=== PATIENT | male | born 1940 | race Caucasian/White ===

== ENCOUNTER 2017-04-30 13:58 | Inpatient (IN) ==
[2017-05-01] MEDS ORDERED: Budesonide/Formoterol 160/4.5 MDI IH PRN (15:33)
[2017-05-01] MEDS: Primidone 50 MG TABLET PO SCH (21:58)
[2017-05-01] MEDS: clonazePAM 1 MG TABLET PO SCH (21:59)
[2017-05-02] MEDS: *HR* Enoxaparin 40 MG/0.4 ML SYRINGE SQ SCH (05:27)
[2017-05-02 05:58] LABS: BUN/Creatinine Ratio 18 (6-26); Blood Urea Nitrogen 22 mg/dL (8-26); Calcium 8.9 mg/dL (8.6-10.8); Carbon Dioxide 24 mEq/L (19-29); Chloride 108 mEq/L (98-109); Glucose 121 mg/dL (70-99); Osmolality,Calculated 295 (280-300); Potassium 3.8 mEq/L (3.5-4.5); Sodium 140 mEq/L (136-145); eGFR For African Americans > 60 (> 60); eGFR For Non-African Americans 59 (> 60)
[2017-05-02 05:59] LABS: Basophils # 0.1 K/mcL (0.0-0.2); Basophils % 1.2 %; Eosinophils # 0.6 K/mcL (0.0-0.6); Eosinophils % 10.8 %; Hematocrit 40.1 % (37.5-50.1); Hemoglobin 13.8 g/dL (12.9-16.9); Immature Granulocytes % 0.3 % (0-4); Lymphocytes # 1.5 K/mcL (0.6-4.6); Lymphocytes % 25.3 %; Mean Corpuscular HGB Conc 34.4 g/dL (31.6-35.5); Mean Corpuscular Hemoglobin 31.9 pg (28.0-33.3); Mean Corpuscular Volume 92.6 fL (83.0-100.0); Mean Platelet Volume 9.5 fL (9.4-12.4); Monocytes # 0.8 K/mcL (0.0-1.3); Monocytes % 12.8 %; Neutrophils # 2.9 K/mcL (1.6-8.9); Platelet Count 150 K/mcL (140-400); Red Blood Count 4.33 M/mcL (4.19-5.50); Red Cell Distribution Width 12.8 % (11.5-14.5); Segmented Neutrophils % 49.6 %
[2017-05-02 06:04] LABS: Prothrombin Time 10.9 Seconds (9.4-12.1)
[2017-05-02 06:07] LABS: Activated Partial Thrombo Time 30.2 Seconds (26.0-36.0)
[2017-05-02] MEDS: Aspirin Enteric Coated 81 MG Tablet PO SCH (08:20)
[2017-05-02] MEDS: hydroCHLOROthiazide 25 MG TABLET PO SCH (08:20)
[2017-05-02] MEDS: clonazePAM 1 MG TABLET PO SCH ×2 (08:20→21:13)
[2017-05-02] MEDS: Valsartan 160 MG TABLET PO SCH (08:20)
[2017-05-02] MEDS: *HR* Pioglitazone 15 MG TABLET PO SCH (08:20)
--- NOTE | 2017-05-02 10:08 | Internal Med History&Physical ---
<Fam Carlisle S - Last Filed: 05/02/17 14:06> Date of Encounter: 05/02/17 Internal Medicine - H&P: HPI History of present illness: Mr. Floyd is a 76 year old male Internal Medicine - H&P: Meds Albuterol Sulfate [Albuterol Inhaler] 2 puff IH Q4HR PRN 04/28/17 [History] Aspirin [Lo-Dose Aspirin EC] 81 mg PO DAILY 04/28/17 [History] Clopidogrel [Plavix] 75 mg PO DAILY 04/28/17 [History] Fluticasone/Salmeterol [Advair 100-50 Diskus] 1 each IH BID PRN 04/28/17 [ History] Pioglitazone [Actos] 15 mg PO 0800 04/28/17 [History] Primidone [Mysoline] 50 mg PO HS 04/28/17 [History] Valsartan [Diovan] 160 mg PO DAILY 04/28/17 [History] hydroCHLOROthiazide [Hydrochlorothiazide] 12.5 mg PO DAILY 04/28/17 [History] clonazePAM [Klonopin] 1 mg PO BID 04/29/17 [History] Atorvastatin [Lipitor] 40 mg PO HS tablet 05/01/17 [Rx] 3 Allergy/AdvReac Type Severity Reaction Status Date / Time codeine AdvReac Dizziness Verified 11/01/16 08:36 All Systems PM: A 10-system review of systems was performed and is negative for pertinent findings except as documented above in the HPI. - Constitutional Vitals: Temp Pulse Resp BP Pulse Ox 98.6 F 70 16 142/72 95 05/02/17 10:55 05/02/17 10:55 05/02/17 10:55 05/02/17 10:55 05/02/17 10:55 Internal Med - H&P Results - Labs CBC & Chem 7: 05/02/17 05:20 05/02/17 05:20 Labs: Short CBC 05/02/17 Range/Units 05:20 WBC 5.9 (4.3-11.1) K/mcL Hgb 13.8 (12.9-16.9) g/dL Hct 40.1 (37.5-50.1) % Plt Count 150 (140-400) K/mcL Neutrophils # 2.9 (1.6-8.9) K/mcL BMP 05/02/17 05:20 Sodium 140 Potassium 3.8 Chloride 108 Carbon Dioxide 24 BUN 22 Creatinine 1.19 Glucose 121 H Calcium 8.9 <Tanya Barber - Last Filed: 05/02/17 15:05> Date of Encounter: 05/02/17 Time of Encounter: 10:08 Assessment and Plan (1) DVT prophylaxis Current visit: No Status: Acute lovenox started and will monitor (2) Right hemisphere, cerebral infarction Current visit: No Status: Acute PT/OT/ST eval and treat. follow up with neuro as scheduled. monitor progress. (3) Diabetes mellitus Current visit: No Status: Chronic continue actos. monitor FSBS. will adjust meds as necessary. 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 conitnue valsartan. monitor BP Qualifiers: Hypertension type: essential hypertension Qualified Code(s): I10 - Essential (primary) hypertension (5) Stroke Current visit: No Status: Suspected Qualifiers: CVA mechanism: embolism Precerebral and cerebral artery: middle cerebral artery Laterality of affected vessel: right Qualified Code(s): I63.411 - Cerebral infarction due to embolism of right middle cerebral artery Internal Medicine - H&P: HPI Chief complaint: admit to inpatient rehab for CVA Admitted From: Intrahospital Transfer Plans for Post Hospital Care: Home History of present illness: Mr. Floyd is a 76 year old male with Past medical history of: HTN, CAD, [place] with 1 stent, and diabetes. awoke on 04/28/17 with left sided weakness and facial droop. went to the ED and diagnosed with CVA. outside range for TPN. pt was hypertensive and had elevated creatine, which have both returned to baseline. denies any headache or vision changes. no speech or swallowing difficulties. denies pain at this time. states has had tremors to head, bilat upper and lower extremities for the past 5 years. has not seen a neurologist for work up on tremors in the past. started on lipitor and will continue ASA and plavix. goal to return home. has a son that lives close that is available to assist if needed. Past Med Surg Social Fam HX - Past Medical History Medical history: COPD, diabetes, hypertension, myocardial infarction Psychiatric history: no psych history - Past Surgical History Surgical History: cholecystectomy, herniorrhaphy, LE stent(s) - Social History Smoking Status: Former smoker Smokeless Tobacco Status: No Alcohol use: none Drug use: none - Family History Mother Hx Family Cardiac Disorders: Yes (HTN) Hx Family Endocrine Disorder: Yes (DM) Father Hx Family Cardiac Disorders: Yes (HTN) All Systems PM: A 10-system review of systems was performed and is negative for pertinent findings except as documented above in the HPI. - Constitutional Constitutional: no chills, no fever(s), no night sweats - EENT Eyes: no change in vision, no discharge, no pain, no photophobia Ears: no ear discharge, no ear pain, no tinnitus Nose, mouth and throat: no dysphagia, no nasal discharge, no neck pain, no sore throat - Cardiovascular Cardiovascular ROS IM: no chest pain, no diaphoresis, no dyspnea, no lightheadedness, no palpitations, no syncope - Respiratory Respiratory: no cough, no dyspnea, no wheezing, no excessive phlegm production - Gastrointestinal Gastrointestinal: no abdominal pain, no diarrhea, no hematemesis, no hematochezia, no melena, no nausea, no vomiting - Musculoskeletal Musculoskeletal ROS IM: muscle weakness, no numbness, no tingling Additional comments: left sided weakness - Integumentary Integumentary IM: no rash, no unusual bruising - Neurological Neurological ROS: no confusion, no convulsions, no focal weakness, no numbness, no tingling, no tremor(s) - Psychiatric Additional comments: denies depression, mood stable. - Hematologic/Lymphatic Hematologic/Lymphatic: no easy bruising - Constitutional Vitals: Temp Pulse Resp BP Pulse Ox 98.2 F 60 17 128/60 93 05/02/17 07:13 05/02/17 07:13 05/02/17 07:13 05/02/17 07:13 05/02/17 07:13 General appearance: Present: A&O X 3, pleasant, no acute distress, answers questions appropriately - Head Head exam: Present: atraumatic, normocephalic - Eye Eye exam: Present: PERRL, conjuntiva pink, sclera anicteric Pupils: Present: PERRL - Neck Neck exam general surgery: Present: supple, trachea midline. Absent: lymphadenopathy - Respiratory Respiratory exam: Present: CTAB. Absent: accessory muscle use, rales, rhonchi, wheezes - Cardiovascular Cardiovascular exam: Present: RRR, +S1, +S2. Absent: diastolic murmur, gallop, rubs, systolic murmur - GI/Abdominal GI/Abdominal exam: Present: normal bowel sounds, soft, no peritoneal signs. Absent: distended, tenderness - Extremities Exam Extremities exam: Present: warm, radial pulses palpable and symmetrical. Absent : calf tenderness, cyanotic, pedal edema - Neurological Exam Neurological exam: Present: CN II-XII intact, oriented X3, no focal deficits. Absent: pronater drift, facial droop, speech deficit - Expanded Neurological Exam Neurological exam expanded: Present: tremor Patient oriented to: Present: person, place, time Speech: Present: fluid speech Cerebellar function: finger to nose: Normal, heel to gamble: Normal, Romberg: Normal Upper motor neuron: pronator drift: Normal Neuro motor strength exam: LUE: 4, RUE: 5 - Psychiatric Psychiatric exam: Present: normal affect, normal mood - Skin Skin exam: Present: dry, intact Internal Med - H&P Results - Labs CBC & Chem 7: 05/02/17 05:20 05/02/17 05:20 Labs: Short CBC 05/02/17 Range/Units 05:20 WBC 5.9 (4.3-11.1) K/mcL Hgb 13.8 (12.9-16.9) g/dL Hct 40.1 (37.5-50.1) % Plt Count 150 (140-400) K/mcL Neutrophils # 2.9 (1.6-8.9) K/mcL BMP 05/02/17 05:20 Sodium 140 Potassium 3.8 Chloride 108 Carbon Dioxide 24 BUN 22 Creatinine 1.19 Glucose 121 H Calcium 8.9
[2017-05-02] MEDS: Primidone 50 MG TABLET PO SCH (21:13)
[2017-05-03] MEDS: *HR* Enoxaparin 40 MG/0.4 ML SYRINGE SQ SCH (06:30)
[2017-05-03] MEDS: Valsartan 160 MG TABLET PO SCH (08:50)
[2017-05-03] MEDS: hydroCHLOROthiazide 25 MG TABLET PO SCH (08:50)
[2017-05-03] MEDS: clonazePAM 1 MG TABLET PO SCH ×2 (08:50→20:46)
[2017-05-03] MEDS: Aspirin Enteric Coated 81 MG Tablet PO SCH (08:50)
[2017-05-03] MEDS: *HR* Pioglitazone 15 MG TABLET PO SCH (08:51)
--- NOTE | 2017-05-03 12:09 | Internal Med Progress Note ---
Date of Encounter: 05/03/17 Time of Encounter: 12:07 - Assessment and plan (1) Right hemisphere, cerebral infarction Current Visit: No Status: Acute Assessment and plan: No acute neurological deficits noted. Patient continues as a very slight left hemiparesis for residual. Noticed slight left facial droop. Speech remains clear and no dysphagia noted. Patient will continue with current therapy and current medications. (2) Diabetes mellitus Current Visit: No Status: Chronic Assessment and plan: No acute issues. Patient to continue on fingersticks with current coverage. We will continue to monitor glucose to evaluate needs for changes. 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 Vital signs stable. We will continue with current medications. Qualifiers: Hypertension type: essential hypertension Qualified Code(s): I10 - Essential (primary) hypertension - Subjective Interval history: Patient was admitted for rehabilitation following a acute CVA and left hemiparesis. Patient currently denies any discomforts or shortness of breath. Denies any acute neurological changes noted - Constitutional Vitals: Temp Pulse Resp BP Pulse Ox 97.8 F 61 12 133/67 97 05/03/17 07:30 05/03/17 07:30 05/03/17 07:30 05/03/17 07:30 05/03/17 07:30 General appearance: Present: A&O X 3, pleasant, no acute distress, answers questions appropriately - Head Head exam: Present: atraumatic, normocephalic Additional comments: Very slight left facial droop noted. Tongue is midline. Speech is clear - Eye Eye exam: Present: PERRL, conjuntiva pink, sclera anicteric Pupils: Present: PERRL - Neck Neck exam general surgery: Present: supple, trachea midline. Absent: lymphadenopathy - Respiratory Respiratory exam: Present: CTAB. Absent: accessory muscle use, rales, rhonchi, wheezes - Cardiovascular Cardiovascular exam: Present: RRR, +S1, +S2. Absent: diastolic murmur, gallop, rubs, systolic murmur - GI/Abdominal GI/Abdominal exam: Present: normal bowel sounds, soft, no peritoneal signs. Absent: distended, tenderness - Extremities Exam Extremities exam: Present: warm, radial pulses palpable and symmetrical. Absent : calf tenderness, cyanotic, pedal edema - Neurological Exam Neurological exam: Present: CN II-XII intact, oriented X3. Absent: no focal deficits, pronater drift, facial droop, speech deficit Additional comments: Noted very slight left hemiparesis with LE MS 4/5 and RE MS 5/5. Continued slight left facial droop. Speech is clear. Tongue is midline. No drift - Skin Skin exam: Present: dry, intact Internal Medicine: Result - Labs CBC & Chem 7: 05/02/17 05:20 05/02/17 05:20 - ABG Interpretation ABG results: PT/INR, D-dimer PT 10.9 Seconds (9.4-12.1) 05/02/17 05:20 Consult Discharge Plan - Plan Referrals: Hugh Yeager MD [Primary Care Provider] -
[2017-05-03] MEDS: Primidone 50 MG TABLET PO SCH (20:46)
[2017-05-04] MEDS: *HR* Enoxaparin 40 MG/0.4 ML SYRINGE SQ SCH (06:25)
[2017-05-04] MEDS: Valsartan 160 MG TABLET PO SCH (08:43)
[2017-05-04] MEDS: hydroCHLOROthiazide 25 MG TABLET PO SCH (08:43)
[2017-05-04] MEDS: Aspirin Enteric Coated 81 MG Tablet PO SCH (08:43)
[2017-05-04] MEDS: *HR* Pioglitazone 15 MG TABLET PO SCH (08:44)
[2017-05-04] MEDS: clonazePAM 1 MG TABLET PO SCH ×2 (08:44→20:52)
--- NOTE | 2017-05-04 15:12 | Internal Med Progress Note ---
Date of Encounter: 05/04/17 Time of Encounter: 15:00 - Assessment and plan (1) Diabetes mellitus Current Visit: No Status: Chronic Assessment and plan: Continue pioglitazone and blood sugar monitoring. Qualifiers: Diabetes mellitus type: type 2 Diabetes mellitus complication status: without complication Diabetes mellitus assisted insulin use: without assisted use Qualified Code(s): E11.9 - Type 2 diabetes mellitus without complications (2) Right hemisphere, cerebral infarction Current Visit: No Status: Acute Assessment and plan: Continue working with therapists. - Time Spent With Patient less than 15 minutes - Subjective Interval history: Report feeling a bit tired after therapy, otherwise no concern. - Constitutional Vitals: Temp Pulse Resp BP Pulse Ox 98.0 F 64 16 150/68 95 05/04/17 07:00 05/04/17 07:00 05/04/17 07:00 05/04/17 07:00 05/04/17 07:00 General appearance: Present: A&O X 3, pleasant, no acute distress, answers questions appropriately Exam: Gen: A&Ox3, NAD. HEENT: NCAT. Neck: No palpable lymphadenopathy or thyromegaly. CV: RRR, S1S2. No murmur. Capillary refill < 2 seconds. Pulm: CTAB. Abd: (+)BS. NDNT. Neuro: Non-focal. Skin: No rash. Ext: No pitting edema. Internal Medicine: Result - Labs CBC & Chem 7: 05/02/17 05:20 05/02/17 05:20 - ABG Interpretation ABG results: PT/INR, D-dimer PT 10.9 Seconds (9.4-12.1) 05/02/17 05:20 Consult Discharge Plan - Plan Referrals: Hugh Yeager MD [Primary Care Provider] -
[2017-05-04] MEDS: Primidone 50 MG TABLET PO SCH (20:53)
[2017-05-05] MEDS: *HR* Enoxaparin 40 MG/0.4 ML SYRINGE SQ SCH (05:36)
[2017-05-05] MEDS: hydroCHLOROthiazide 25 MG TABLET PO SCH (07:38)
[2017-05-05] MEDS: Valsartan 160 MG TABLET PO SCH (07:39)
[2017-05-05] MEDS: *HR* Pioglitazone 15 MG TABLET PO SCH (07:39)
[2017-05-05] MEDS: clonazePAM 1 MG TABLET PO SCH ×2 (07:39→20:52)
[2017-05-05] MEDS: Aspirin Enteric Coated 81 MG Tablet PO SCH (07:39)
--- NOTE | 2017-05-05 13:37 | Internal Med Progress Note ---
Date of Encounter: 05/05/17 Time of Encounter: 13:00 - Assessment and plan (1) Diabetes mellitus Current Visit: No Status: Chronic Assessment and plan: Continue pioglitazone and blood sugar monitoring. Qualifiers: Diabetes mellitus type: type 2 Diabetes mellitus complication status: without complication Diabetes mellitus chcf insulin use: without chcf use Qualified Code(s): E11.9 - Type 2 diabetes mellitus without complications (2) Right hemisphere, cerebral infarction Current Visit: No Status: Acute Assessment and plan: Continue working with therapists. Can likely aim for home/discharge soon. - Time Spent With Patient less than 15 minutes - Subjective Interval history: Doing well. Feeling "pretty good." No particular concern or complaint at this time. - Constitutional Vitals: Temp Pulse Resp BP Pulse Ox 98.0 F 63 16 126/70 94 05/05/17 07:43 05/05/17 07:43 05/05/17 07:43 05/05/17 07:43 05/05/17 07:43 General appearance: Present: A&O X 3, pleasant, no acute distress, answers questions appropriately Exam: Gen: A&Ox3, NAD. HEENT: NCAT. Neck: No palpable lymphadenopathy or thyromegaly. CV: RRR, S1S2. No murmur. Capillary refill < 2 seconds. Pulm: CTAB. Abd: (+)BS. NDNT. Neuro: Non-focal. Skin: No rash. Ext: No pitting edema. Internal Medicine: Result - Labs CBC & Chem 7: 05/02/17 05:20 05/02/17 05:20 - ABG Interpretation ABG results: PT/INR, D-dimer PT 10.9 Seconds (9.4-12.1) 05/02/17 05:20 Consult Discharge Plan - Plan Referrals: Hugh Yeager MD [Primary Care Provider] -
[2017-05-05] MEDS: Primidone 50 MG TABLET PO SCH (20:53)
[2017-05-06] MEDS: *HR* Enoxaparin 40 MG/0.4 ML SYRINGE SQ SCH (05:25)
[2017-05-06 05:49] LABS: Basophils # 0.1 K/mcL (0.0-0.2); Basophils % 1.4 %; Eosinophils # 0.5 K/mcL (0.0-0.6); Eosinophils % 9.1 %; Hematocrit 38.4 % (37.5-50.1); Hemoglobin 13.6 g/dL (12.9-16.9); Immature Granulocytes % 0.7 % (0-4); Lymphocytes # 1.2 K/mcL (0.6-4.6); Lymphocytes % 21.1 %; Mean Corpuscular HGB Conc 35.4 g/dL (31.6-35.5); Mean Corpuscular Hemoglobin 32.5 pg (28.0-33.3); Mean Corpuscular Volume 91.6 fL (83.0-100.0); Mean Platelet Volume 9.6 fL (9.4-12.4); Monocytes # 0.8 K/mcL (0.0-1.3); Monocytes % 13.2 %; Neutrophils # 3.1 K/mcL (1.6-8.9); Platelet Count 159 K/mcL (140-400); Red Blood Count 4.19 M/mcL (4.19-5.50); Segmented Neutrophils % 54.5 %
[2017-05-06 05:58] LABS: BUN/Creatinine Ratio 23 (6-26); Blood Urea Nitrogen 22 mg/dL (8-26); Calcium 8.9 mg/dL (8.6-10.8); Carbon Dioxide 22 mEq/L (19-29); Chloride 106 mEq/L (98-109); Glucose 119 mg/dL (70-99); Osmolality,Calculated 288 (280-300); Potassium 3.7 mEq/L (3.5-4.5); Sodium 137 mEq/L (136-145); eGFR For African Americans > 60 (> 60); eGFR For Non-African Americans > 60 (> 60)
[2017-05-06] MEDS: clonazePAM 1 MG TABLET PO SCH ×2 (09:13→21:33)
[2017-05-06] MEDS: *HR* Pioglitazone 15 MG TABLET PO SCH (09:13)
[2017-05-06] MEDS: Valsartan 160 MG TABLET PO SCH (09:13)
[2017-05-06] MEDS: Aspirin Enteric Coated 81 MG Tablet PO SCH (09:13)
[2017-05-06] MEDS: hydroCHLOROthiazide 25 MG TABLET PO SCH (09:13)
--- NOTE | 2017-05-06 11:43 | Internal Med Progress Note ---
Date of Encounter: 05/06/17 Time of Encounter: 11:41 - Assessment and plan (1) Right hemisphere, cerebral infarction Current Visit: Yes Status: Acute Assessment and plan: No acute issues. Patient's neurological exam appears unchanged per local records. Patient continues with very slight weakness to left extremities as residual. Patient continues to be unsteady with gait training and ambulation. Continue with current plan of care. Patient to continue with physical therapy. (2) Diabetes mellitus Current Visit: No Status: Chronic Assessment and plan: Continue pioglitazone and will continue with fingerstick with sliding scale coverage. No other acute issues noted. Fairly well-controlled. 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 Vital signs stable. We will continue with current medications. Qualifiers: Hypertension type: essential hypertension Qualified Code(s): I10 - Essential (primary) hypertension - Subjective Interval history: Patient currently denies any discomforts or shortness of breath. Denies any acute neurological changes noted. States he feels stronger today. - Constitutional Vitals: Temp Pulse Resp BP Pulse Ox 97.4 F L 59 18 147/67 98 05/06/17 07:00 05/06/17 07:00 05/06/17 07:00 05/06/17 07:00 05/06/17 07:00 General appearance: Present: A&O X 3, pleasant, no acute distress, answers questions appropriately - Head Head exam: Present: atraumatic, normocephalic - Eye Eye exam: Present: EOMI, PERRL, conjuntiva pink, sclera anicteric Pupils: Present: PERRL - Neck Neck exam general surgery: Present: supple, trachea midline. Absent: lymphadenopathy - Respiratory Respiratory exam: Present: CTAB. Absent: accessory muscle use, rales, rhonchi, wheezes - Cardiovascular Cardiovascular exam: Present: RRR, +S1, +S2. Absent: diastolic murmur, gallop, rubs, systolic murmur - GI/Abdominal GI/Abdominal exam: Present: normal bowel sounds, soft, no peritoneal signs. Absent: distended, tenderness - Extremities Exam Extremities exam: Present: warm, radial pulses palpable and symmetrical. Absent : calf tenderness, cyanotic, pedal edema - Neurological Exam Neurological exam: Present: CN II-XII intact, oriented X3, reflexes normal, no focal deficits, strengths equal and symetr throughout. Absent: pronater drift, facial droop, speech deficit Additional comments: Patient noted to have very slight weakness to his left extremities. Ambulate with assistance with a walker, noted continued unsteady gait. - Skin Skin exam: Present: dry, intact Internal Medicine: Result - Labs CBC & Chem 7: 05/06/17 05:20 05/06/17 05:20 Labs: Short CBC 05/06/17 Range/Units 05:20 WBC 5.7 (4.3-11.1) K/mcL Hgb 13.6 (12.9-16.9) g/dL Hct 38.4 (37.5-50.1) % Plt Count 159 (140-400) K/mcL Neutrophils # 3.1 (1.6-8.9) K/mcL BMP 05/06/17 05:20 Sodium 137 Potassium 3.7 Chloride 106 Carbon Dioxide 22 BUN 22 Creatinine 0.97 Glucose 119 H Calcium 8.9 - ABG Interpretation ABG results: PT/INR, D-dimer PT 10.9 Seconds (9.4-12.1) 05/02/17 05:20 Consult Discharge Plan - Plan Referrals: Hugh Yeager MD [Primary Care Provider] -
[2017-05-06] MEDS: Primidone 50 MG TABLET PO SCH (21:34)
[2017-05-07] MEDS: *HR* Enoxaparin 40 MG/0.4 ML SYRINGE SQ SCH (05:28)
[2017-05-07] MEDS: Valsartan 160 MG TABLET PO SCH (08:15)
[2017-05-07] MEDS: Aspirin Enteric Coated 81 MG Tablet PO SCH (08:15)
[2017-05-07] MEDS: hydroCHLOROthiazide 25 MG TABLET PO SCH (08:15)
[2017-05-07] MEDS: clonazePAM 1 MG TABLET PO SCH ×2 (08:15→20:06)
[2017-05-07] MEDS: *HR* Pioglitazone 15 MG TABLET PO SCH (08:16)
--- NOTE | 2017-05-07 11:46 | Internal Med Progress Note ---
Date of Encounter: 05/07/17 Time of Encounter: 11:44 - Assessment and plan (1) DVT prophylaxis Current Visit: No Status: Acute Assessment and plan: continue lovenox (2) Right hemisphere, cerebral infarction Current Visit: Yes Status: Acute Assessment and plan: No acute issues. Patient's neurological exam appears unchanged per local records. Patient continues with very slight weakness to left extremities as residual. Patient continues to be unsteady with gait training and ambulation. Continue with current plan of care. Patient to continue with physical therapy. (3) Diabetes mellitus Current Visit: No Status: Chronic Assessment and plan: Continue pioglitazone and will continue with fingerstick with sliding scale coverage. No other acute issues noted. Fairly well-controlled. 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 Vital signs stable. We will continue with current medications. Qualifiers: Hypertension type: essential hypertension Qualified Code(s): I10 - Essential (primary) hypertension (5) Stroke Current Visit: No Status: Suspected Assessment and plan: continue PT/OT will follow progress. f/u with neuro as scheduled. Qualifiers: CVA mechanism: embolism Precerebral and cerebral artery: middle cerebral artery Laterality of affected vessel: right Qualified Code(s): I63.411 - Cerebral infarction due to embolism of right middle cerebral artery - Time Spent With Patient less than 15 minutes - Subjective Interval history: patient participating well with therapy. ambulating in [place] with walker with SBA. slight weakness on Left side with unsteady gait. states "I feel like I am getting stronger." denies pain, chest pain, SOB. neurological symptoms unchanges. appetite good, maintaining hydration. - Constitutional Vitals: Temp Pulse Resp BP Pulse Ox 97.5 F L 62 16 142/72 96 05/07/17 07:29 05/07/17 07:29 05/07/17 07:29 05/07/17 07:29 05/07/17 07:29 General appearance: Present: A&O X 3, pleasant, no acute distress, answers questions appropriately - Head Head exam: Present: atraumatic, normocephalic - Eye Eye exam: Present: PERRL, conjuntiva pink, sclera anicteric Pupils: Present: PERRL - Neck Neck exam general surgery: Present: supple, trachea midline. Absent: lymphadenopathy - Respiratory Respiratory exam: Present: CTAB. Absent: accessory muscle use, rales, rhonchi, wheezes - Cardiovascular Cardiovascular exam: Present: RRR, +S1, +S2. Absent: diastolic murmur, gallop, rubs, systolic murmur - GI/Abdominal GI/Abdominal exam: Present: normal bowel sounds, soft, no peritoneal signs. Absent: distended, tenderness - Extremities Exam Extremities exam: Present: warm, radial pulses palpable and symmetrical. Absent : calf tenderness, cyanotic, pedal edema - Neurological Exam Neurological exam: Present: CN II-XII intact, oriented X3, no focal deficits. Absent: pronater drift, facial droop, speech deficit Additional comments: unsteady gait. - Expanded Neurological Exam Neurological exam expanded: Present: tremor Neuro motor strength exam: LUE: 5, RUE: 5, LLE: 5, RLE: 5 - Skin Skin exam: Present: dry, intact Internal Medicine: Result - Labs CBC & Chem 7: 05/06/17 05:20 05/06/17 05:20 - ABG Interpretation ABG results: PT/INR, D-dimer PT 10.9 Seconds (9.4-12.1) 05/02/17 05:20 Consult Discharge Plan - Plan Referrals: Hugh Yeager MD [Primary Care Provider] -
[2017-05-07] MEDS: Primidone 50 MG TABLET PO SCH (20:06)
[2017-05-08] MEDS: *HR* Enoxaparin 40 MG/0.4 ML SYRINGE SQ SCH (06:55)
[2017-05-08] MEDS: *HR* Pioglitazone 15 MG TABLET PO SCH (08:33)
[2017-05-08] MEDS: clonazePAM 1 MG TABLET PO SCH ×2 (08:33→19:46)
[2017-05-08] MEDS: Aspirin Enteric Coated 81 MG Tablet PO SCH (08:33)
[2017-05-08] MEDS: hydroCHLOROthiazide 25 MG TABLET PO SCH (08:34)
[2017-05-08] MEDS: Valsartan 160 MG TABLET PO SCH (08:34)
--- NOTE | 2017-05-08 12:06 | Internal Med Progress Note ---
Date of Encounter: 05/08/17 Time of Encounter: 12:04 - Assessment and plan (1) Right hemisphere, cerebral infarction Current Visit: Yes Status: Acute Assessment and plan: No acute issues. Patient's neurological exam appears unchanged per local records. Patient continues with very slight weakness to left extremities as residual. Patient continues to be unsteady with gait training and ambulation, but has been improving. Continue with current plan of care. Patient to continue with physical therapy. (2) Diabetes mellitus Current Visit: No Status: Chronic Assessment and plan: Continue pioglitazone and will continue with fingerstick with sliding scale coverage. No other acute issues noted. DM well-controlled. Qualifiers: Diabetes mellitus type: type 2 Diabetes mellitus complication status: without complication Diabetes mellitus care home insulin use: without care home use Qualified Code(s): E11.9 - Type 2 diabetes mellitus without complications (3) HTN (hypertension) Current Visit: No Status: Chronic Assessment and plan: No acute issues. Vital signs stable. We will continue with current medications. Qualifiers: Hypertension type: essential hypertension Qualified Code(s): I10 - Essential (primary) hypertension - Subjective Interval history: Patient currently denies any discomforts or shortness of breath. Denies any acute neurological changes noted. - Constitutional Vitals: Temp Pulse Resp BP Pulse Ox 97.2 F L 81 18 138/72 97 05/08/17 07:00 05/08/17 07:00 05/08/17 07:00 05/08/17 07:00 05/08/17 07:00 General appearance: Present: A&O X 3, pleasant, no acute distress, answers questions appropriately - Head Head exam: Present: atraumatic, normocephalic - Eye Eye exam: Present: PERRL, conjuntiva pink, sclera anicteric Pupils: Present: PERRL - Neck Neck exam general surgery: Present: supple, trachea midline. Absent: lymphadenopathy - Respiratory Respiratory exam: Present: CTAB. Absent: accessory muscle use, rales, rhonchi, wheezes - Cardiovascular Cardiovascular exam: Present: RRR, +S1, +S2. Absent: diastolic murmur, gallop, rubs, systolic murmur - GI/Abdominal GI/Abdominal exam: Present: normal bowel sounds, soft, no peritoneal signs. Absent: distended, tenderness - Neurological Exam Neurological exam: Present: CN II-XII intact, oriented X3, no focal deficits. Absent: pronater drift, facial droop, speech deficit - Skin Skin exam: Present: dry, intact Internal Medicine: Result - Labs CBC & Chem 7: 05/06/17 05:20 05/06/17 05:20 - ABG Interpretation ABG results: PT/INR, D-dimer PT 10.9 Seconds (9.4-12.1) 05/02/17 05:20 Consult Discharge Plan - Plan Referrals: Hugh Yeager MD [Primary Care Provider] -
[2017-05-08] MEDS: Primidone 50 MG TABLET PO SCH (19:46)
[2017-05-09] MEDS: *HR* Enoxaparin 40 MG/0.4 ML SYRINGE SQ SCH (06:34)
[2017-05-09] MEDS: clonazePAM 1 MG TABLET PO SCH ×2 (09:24→21:27)
[2017-05-09] MEDS: Aspirin Enteric Coated 81 MG Tablet PO SCH (09:24)
[2017-05-09] MEDS: *HR* Pioglitazone 15 MG TABLET PO SCH (09:24)
[2017-05-09] MEDS: hydroCHLOROthiazide 25 MG TABLET PO SCH (09:24)
[2017-05-09] MEDS: Valsartan 160 MG TABLET PO SCH (09:24)
--- NOTE | 2017-05-09 11:37 | Internal Med Progress Note ---
Date of Encounter: 05/09/17 Time of Encounter: 11:35 - Assessment and plan (1) DVT prophylaxis Current Visit: No Status: Acute Assessment and plan: continue lovenox (2) Right hemisphere, cerebral infarction Current Visit: Yes Status: Acute Assessment and plan: No acute issues. Patient's neurological exam appears unchanged. Patient continues with very slight weakness to left extremities as residual. Patient continues to be unsteady with gait training and ambulation, but has been improving. Continue with current plan of care. Patient to continue with physical therapy and OT. (3) Diabetes mellitus Current Visit: No Status: Chronic Assessment and plan: Continue pioglitazone and will continue with fingerstick with sliding scale coverage. No other acute issues noted. DM well-controlled. Qualifiers: Diabetes mellitus type: type 2 Diabetes mellitus complication status: without complication Diabetes mellitus residential insulin use: without residential use Qualified Code(s): E11.9 - Type 2 diabetes mellitus without complications (4) HTN (hypertension) Current Visit: No Status: Chronic Assessment and plan: No acute issues. Vital signs stable. We will continue with current medications. Qualifiers: Hypertension type: essential hypertension Qualified Code(s): I10 - Essential (primary) hypertension (5) Stroke Current Visit: No Status: Suspected Assessment and plan: continue PT/OT will follow progress. f/u with neuro as scheduled. Qualifiers: CVA mechanism: embolism Precerebral and cerebral artery: middle cerebral artery Laterality of affected vessel: right Qualified Code(s): I63.411 - Cerebral infarction due to embolism of right middle cerebral artery - Time Spent With Patient less than 15 minutes - Subjective Interval history: patient participating well with therapy. states "I feel like I am getting stronger." denies pain, chest pain, SOB. neurological symptoms unchanges. appetite good, maintaining hydration. - Constitutional Vitals: Temp Pulse Resp BP Pulse Ox 97.8 F 63 16 167/85 96 05/09/17 07:33 05/09/17 07:33 05/09/17 07:33 05/09/17 07:33 05/09/17 07:33 General appearance: Present: A&O X 3, pleasant, no acute distress, answers questions appropriately - Head Head exam: Present: atraumatic, normocephalic - Eye Eye exam: Present: PERRL, conjuntiva pink, sclera anicteric Pupils: Present: PERRL - Neck Neck exam general surgery: Present: supple, trachea midline. Absent: lymphadenopathy - Respiratory Respiratory exam: Present: CTAB. Absent: accessory muscle use, rales, rhonchi, wheezes - Cardiovascular Cardiovascular exam: Present: RRR, +S1, +S2. Absent: diastolic murmur, gallop, rubs, systolic murmur - GI/Abdominal GI/Abdominal exam: Present: normal bowel sounds, soft, no peritoneal signs. Absent: distended, tenderness - Extremities Exam Extremities exam: Present: warm, radial pulses palpable and symmetrical. Absent : calf tenderness, cyanotic, pedal edema - Neurological Exam Neurological exam: Present: CN II-XII intact, oriented X3, no focal deficits. Absent: pronater drift, facial droop, speech deficit - Skin Skin exam: Present: dry, intact Internal Medicine: Result - Labs CBC & Chem 7: 05/06/17 05:20 05/06/17 05:20 - ABG Interpretation ABG results: PT/INR, D-dimer PT 10.9 Seconds (9.4-12.1) 05/02/17 05:20 Consult Discharge Plan - Plan Referrals: Hugh Yeager MD [Primary Care Provider] -
[2017-05-09] MEDS: Primidone 50 MG TABLET PO SCH (21:27)
[2017-05-10] MEDS: *HR* Enoxaparin 40 MG/0.4 ML SYRINGE SQ SCH (07:22)
[2017-05-10 07:37] VITALS: BP 164/76
[2017-05-10] MEDS: Valsartan 160 MG TABLET PO SCH (08:44)
[2017-05-10] MEDS: *HR* Pioglitazone 15 MG TABLET PO SCH (08:44)
[2017-05-10] MEDS: hydroCHLOROthiazide 25 MG TABLET PO SCH (08:44)
[2017-05-10] MEDS: clonazePAM 1 MG TABLET PO SCH (08:44)
[2017-05-10] MEDS: Aspirin Enteric Coated 81 MG Tablet PO SCH (08:44)
--- NOTE | 2017-05-10 11:56 | Discharge Summary ---
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 Qualified Code(s): E11.9 - Type 2 diabetes mellitus without complications (3) Stroke Priority: Primary Status: Suspected Qualifiers: CVA mechanism: embolism Precerebral and cerebral artery: middle cerebral artery Laterality of affected vessel: right Qualified Code(s): I63.411 - Cerebral infarction due to embolism of right middle cerebral artery - Discharge Medications Home Medications: Albuterol Sulfate [Albuterol Inhaler] 2 puff IH Q4HR PRN 04/28/17 [History] Aspirin [Lo-Dose Aspirin EC] 81 mg PO DAILY 04/28/17 [History] Clopidogrel [Plavix] 75 mg PO DAILY 04/28/17 [History] Fluticasone/Salmeterol [Advair 100-50 Diskus] 1 each IH BID PRN 04/28/17 [ History] Pioglitazone [Actos] 15 mg PO 0800 04/28/17 [History] Primidone [Mysoline] 50 mg PO HS 04/28/17 [History] Valsartan [Diovan] 160 mg PO DAILY 04/28/17 [History] hydroCHLOROthiazide [Hydrochlorothiazide] 12.5 mg PO DAILY 04/28/17 [History] clonazePAM [Klonopin] 1 mg PO BID 04/29/17 [History] Atorvastatin [Lipitor] 40 mg PO HS tablet 05/01/17 [Rx] Allergies/Adverse Reactions: 3 Allergy/AdvReac Type Severity Reaction Status Date / Time codeine AdvReac Dizziness Verified 11/01/16 08:36 Date of admission: 05/01/17 16:18 Primary care physician: Hugh Yeager MD Consults: 05/01/17 16:01 Consult to Occupational Therapy [CONS] Routine Comment: eval and treat Reason for Consult: cva Consult to Physical Therapy [CONS] Routine Comment: eval and treat Reason for Consult: cva Consult to Recreational Therapy [CONS] Routine Comment: Consult to Tube Balancer [CONS] Routine Reason for SW Consult: discharge planning 05/01/17 16:05 Consult to Speech Therapy [CONS] Routine Comment: Evaluate, develop and implement POC Reason for Consult: eval Call Completed: No Discharging clinician: Fam Carlisle Anticipated date of discharge: 05/10/17 - Patient Status Condition: Good Functional capacity at discharge: uses cane/walker Overall status at discharge: patient is progressing back to baseline - Discharge Instructions Follow Up With: Ba Cosby MD [Partnered Physician] - 05/29/17 2:15 pm Hugh Yeager MD [Primary Care Provider] - 05/17/17 10:00 am (new number ) - Diet and Activity Activity: ambulate only with your walker Diet: advance to your usual diet Interval History: Patient was brought to the [facility] rehabilitation and is status post CVA. He had some acute renal failure but looks like that is generally subsided Hospital course: Mr. Floyd is a 76 year old male We will came to [facility] for rehabilitation after CVA. He has done well on household distances and is stable. - Time Spent with Patient Total time spent providing and/or coordinating discharge services: Less than 30 minutes - Constitutional Vitals: Temp Pulse Resp BP Pulse Ox 97.5 F L 76 16 164/76 94 05/10/17 07:37 05/10/17 07:37 05/10/17 07:37 05/10/17 07:37 05/10/17 07:37 General appearance: Present: A&O X 3, pleasant, no acute distress, answers questions appropriately - Head Head exam: Present: atraumatic, normal inspection, normocephalic - Neck Neck exam general surgery: Present: supple, trachea midline. Absent: lymphadenopathy - Respiratory Respiratory exam: Present: CTAB. Absent: accessory muscle use, rales, rhonchi, wheezes - Cardiovascular Cardiovascular exam: Present: RRR, +S1, +S2. Absent: diastolic murmur, gallop, rubs, systolic murmur - GI/Abdominal GI/Abdominal exam: Present: normal bowel sounds, soft, no peritoneal signs. Absent: distended, tenderness - VTE Documentation of Mechanical Device: Graduated compression elastic hosiery
--- NOTE | 2017-05-10 12:59 | Physician Discharge Referral ---
Home Health/Hosp Referral Info Transfer to: Home Health Provider in Charge Post Discharge: PCP - Diagnosis (1) Right hemisphere, cerebral infarction Priority: Primary Status: Acute (2) Diabetes mellitus Priority: Secondary Status: Chronic (3) Stroke Priority: Primary Status: Suspected (4) Acute renal insufficiency Priority: Secondary Status: Resolved - Respiratory Orders Smoking Cessation: Smoking cessation has been advised. For more information, call the [place] Tobacco Quit Line at 6-915-XYCQ-NOW. - Diet/Nutrition Diet/Nutrition Orders: Regular - Activity Activity Orders: Walker - Services Needed Following services are medically necessary services: Nursing, Physical Therapy, Occupational Therapy - Transfer Medications Home Medications: Albuterol Sulfate [Albuterol Inhaler] 2 puff IH Q4HR PRN 04/28/17 [History] Aspirin [Lo-Dose Aspirin EC] 81 mg PO DAILY 04/28/17 [History] Clopidogrel [Plavix] 75 mg PO DAILY 04/28/17 [History] Fluticasone/Salmeterol [Advair 100-50 Diskus] 1 each IH BID PRN 04/28/17 [ History] Pioglitazone [Actos] 15 mg PO 0800 04/28/17 [History] Primidone [Mysoline] 50 mg PO HS 04/28/17 [History] Valsartan [Diovan] 160 mg PO DAILY 04/28/17 [History] hydroCHLOROthiazide [Hydrochlorothiazide] 12.5 mg PO DAILY 04/28/17 [History] clonazePAM [Klonopin] 1 mg PO BID 04/29/17 [History] Atorvastatin [Lipitor] 40 mg PO HS tablet 05/01/17 [Rx] Allergies/Adverse Reactions: 3 Allergy/AdvReac Type Severity Reaction Status Date / Time codekee AdvReac Dizziness Verified 11/01/16 08:36 Certification: Further, I certify that my clinical findings support that this patient is homebound (i.e. absences from home require considerable and taxing effort and are for medical reasons or druze services or infrequently or short duration when for other reasons) because: Homebound Reason: Patient requires assistance of a person or device to safely leave home Attestation: My signature below is to certify that this patient is under my care and that I, or nurse practitioner, or a physician's clinical trials assistant working with me, has a face-to -face encounter with this patient.
== END 2017-05-10 17:31 | disposition home health service (06) | DRG 57 ==
LOC: INPGRE 05-01 16:18
PROVIDERS: ADMIT Internal Medicine; ATTEND Internal Medicine